=== PATIENT | male | born 1965 | race Caucasian/White ===

== ENCOUNTER 2022-02-25 06:00 | Day surgery (SDC) | payer OTHER, SELFPAY ==
--- NOTE | 2022-02-25 | GASB_PTH ---
PATIENT: DARRELL REEVES LOC: [facility] U#:[id number] AGE/SX: 56/M ROOM: RE02/25/[address]: Dr. Darrell Bello MD : 1965 BED: DIS: 02/25/2022 SPEC #: [id number] RECD: 02/25/22 11:15 STATUS: WEN MURILLO #: [id number] ESTEPHANIA: 02/25/22 00:[address]: Darrell Bello DEPT: SURGICAL PATHOLOGY RECD BY: Ted Camargo ENTERED: 02/25/22 11:16 SP TYPE: Gastric Bx OTHR DR: [facility] Tissues: A - Gastric mucous membrane B - Gastric mucous membrane C - Esophageal mucous membrane D - Transverse colon E - Sigmoid colon biopsy F - Sigmoid colon biopsy G - Rectum, NOS H - Rectum, NOS Procedures: Special Stain Group II Surgery Specimen Level IV Alcian Blue/PAS (control) HEADER OPERATION: Colonoscopy, EGD ([facility]) PRE-OP DIAGNOSIS: Abdominal pain, chronic diarrhea TISSUE SUBMITTED: A ? Gastric antrum biopsy for H. pylori and pathology, B ? Gastroesophageal junction biopsy, C ? Mid esophagus biopsy, D ? Transverse colon biopsy, E ? Sigmoid colon biopsy, F ? Sigmoid polyp at 25 cm biopsy, G ? Superficial serration of rectum biopsy, H ? Rectal polyp biopsy MICROSCOPIC DIAGNOSIS A. Gastric antrum, biopsy: Chronic gastritis. See comment. B. Gastroesophageal junction, biopsy: Mild chronic inflammation. 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 No evidence of dysplasia. Changes of reflux. See comment. C. Mid esophagus, biopsy: No pathologic change. D. Transverse colon, biopsy: Mild melanosis coli. E. Sigmoid colon, biopsy: No pathologic change. F. Sigmoid polyp at 25 cm, biopsy: Fragments of hyperplastic polyp. G. Rectum, biopsy: No pathologic change. H. Rectal polyp, biopsy: Hyperplastic polyp. AM:ramez 02/26/2022 COMMENT A. The results of immunohistochemistry for Helicobacter pylori will be reported separately ([id number]). B. Immunohistochemistry ([id number]) for P53 and Ki-67 will be performed and results will be reported separately. Alcian blue/PAS stain with matched control supports the above diagnosis. MICROSCOPIC DESCRIPTION Slides are reviewed. GROSS DESCRIPTION A - Received in fixative is one container labeled with the patient's name and designated gastric antrum biopsy. The specimen consists of multiple irregular fragments of light merino soft tissue that in aggregate measure 0.6 x 0.4 x 0.1 cm. The specimen is totally submitted in one cassette. B - Received in fixative is one container labeled with the patient's name and designated biopsy GE junction. The specimen consists of multiple irregular fragments of light merino soft tissue that in aggregate measure 1 x 0.3 x 0.1 cm. The specimen is totally submitted in one cassette. C - Received in fixative is one container labeled with the patient's name and designated biopsy mid esophagus. The specimen consists of multiple irregular fragments of light merino soft tissue that in aggregate measure 1 x 0.2 x 0.1 cm. The specimen is totally submitted in one cassette. D - Received in fixative is one container labeled with the patient's name and designated biopsy transverse colon. The specimen consists of one irregular fragment of light merino soft tissue that measures 0.3 x 0.3 x 0.1 cm. The specimen is totally submitted in one cassette. E - Received in fixative is one container labeled with the patient's name and designated biopsy sigmoid colon. The specimen consists of one irregular fragment of light merino soft tissue that measures 0.3 x 0.3 x 0.1 cm. The specimen is totally submitted in one cassette. F - Received in fixative is one container labeled with the patient's name and designated biopsy sigmoid polyp at 25 cm. The specimen consists of two irregular fragments of light merino soft tissue that in aggregate measure 0.6 x 0.3 x 0.1 cm. The specimen is totally submitted in one cassette. G - Received in fixative is one container labeled with the patient's name and designated biopsy superficial serration of rectum. The specimen consists of one irregular fragment of light merino soft tissue that measures 0.4 x 0.3 x 0.1 cm. The specimen is totally submitted in one cassette. H - Received in fixative is one container labeled with the patient's name and designated biopsy rectal polyp. The specimen consists of one irregular fragment of light merino soft tissue that measures 0.3 x 0.3 x 0.1 cm. The specimen is totally submitted in one cassette. / SJ:ramez 02/25/2022 TC:3 CPT: 02487 x8, 52399
[2022-02-25 06:29] VITALS: BP 140/77; PULSE 65; RESP 18; TEMP 36.6; O2SAT 98; BMI 33.8
[2022-02-25] MEDS: Lactated Ringers 1,000 ML 15 ML IV (07:05)
--- NOTE | 2022-02-25 07:30 | IMM_PTH ---
PATIENT: DARRELL REEVES LOC: [facility] U#:[id number] AGE/SX: 56/M ROOM: RE02/25/[address]: Dr. Darrell Bello MD : 1965 BED: DIS: 02/25/2022 SPEC #: [id number] RECD: 02/25/22 13:49 STATUS: WEN CHIDI #: [id number] ESTEPHANIA: 02/25/22 07:[address]: Darrell Bello DEPT: IMMUNOHISTOCHEMISTRY RECD BY: Jacey Addison ENTERED: 02/25/22 13:50 SP TYPE: IMMUNO OTHR DR: [facility] Tissues: A - Stomach, NOS B - Gastric mucous membrane Procedures: H Pylori (initial) P53 (initial) KI-67 (add) PHYSICIAN & INSTITUTION [place] [id number] SPECIMEN INFORMATION: Tissue Source: A ? Gastric antrum biopsy, B ? GE junction biopsy Clinical Info: Abdominal pain, chronic diarrhea Specimen Number: [id number] A & B CPT code: 40815 x2, 32904 METHODOLOGY: Deparaffinized sections of prefer/formalin-fixed tissue or PAP/DQ stained slides are incubated with monoclonal/polyclonal antibodies/oligonucleotide probes. Localization is made via biotin free immunoperoxidase method. Appropriate controls are performed and reacted as expected. Results on target cell population are indicated in the following table: RESULTS: ANTIBODY / CLONE RESULT Block A H Pylori (polyclonal) negative Block B P53 (DO-7) negative Ki-67 (30-9) positive, low These tests were developed and their performance characteristics determined by [facility]. They may not have been cleared or approved by the U.S. Food and Drug Administration. The FDA has determined that such clearance or approval is not necessary. The above immunohistochemical/dualISH markers are ordered and reviewed by the Pathologist. INTERPRETATION: A. Gastric antrum, biopsy: Negative for Helicobacter pylori organisms. B. Gastroesophageal junction, biopsy: No evidence of dysplasia. AM:ramez 03/01/2022
--- NOTE | 2022-02-25 07:43 | HP.PCM_ITS ---
History and Physical Date of Admission: 02/25/22 Date of Service: 02/10/22 MR#:[id number]:[id number]: JANNETTE REEVESRep #:[id number] Provider:Dr. Jannette Bello MDAge/Sex: 56/M [facility] Vital Signs 02/10/22 08:17 Height 5 ft 11 in Weight: 245 lb BMI 34.2 BP 147/89 H Blood Pressure Location Rt brachial Position Sitting Respiration 18 Intake Visit Reasons: Colonoscopy & EGD Chief Complaint: c-scope/egd Permit Specialist Required: No Is patient in pain?: Yes (abdominal pain) Allergies bupropion [From Wellbutrin] Allergy (Mild, Verified 02/10/22 08:16) PT UNSURE OF REACTION Medications cholecalciferol (vitamin D3) 50 mcg (2,000 unit) tablet tablet PO 02/10/22 [His tory Confirmed 02/10/22] fluoxetine 20 mg capsule 20 mg PO DAILY 02/10/22 [History Confirmed 02/10/22] gabapentin 300 mg capsule cap PO 02/10/22 [History Confirmed 02/10/22] miconazole nitrate 2 % topical tincture TOPICAL 02/10/22 [History Confirmed 02/10/22] omeprazole 20 mg capsule,delayed release 20 mg PO DAILY #30 cap 02/10/22 [Rx Confirmed 02/10/22] PFSH Medical History (Updated 02/10/22 @ 19:[address] Jannette Bello MD) Abdominal pain Chronic diarrhea Insomnia Nerve pain Surgical History (Updated 02/10/22 @ 08:20 by Radha Lyons) H/O excision of mass S/P appendectomy Family History (Updated 02/10/22 @ 08:21 by Radha Lyons) Father Cancer skin Social History (Updated 02/10/22 @ 08:21 by Radha Lyons) Smoking Status: Never smoker alcohol intake: current HPI HPI HPI: JANNETTE REEVES, is a 56 M who presents to the office today for what he describes as diarrhea dominant IBS symptoms. They are referred for surgical consultation from the [place] for both EGD and colonoscopy. He states for the last few years he experiences abdominal pain centrally and then shortly thereafter will have episodes of diarrhea throughout the day. Previously these episodes occurred with a frequency of 6 times daily, however, he reports through dietary modifications he has decreased his frequency to 3-4 times daily. By dietary modifications, he details this to mean avoidance of fatty and fried foods. With these bowel movements, he experiences occasional bright red blood per rectum (he estimates with a frequency of 1 time weekly). He states that his blood lightly coats the stool. He denies any routine fiber supplementation, but states that his diet is moderately high and fiber through foods such as granola bars, oatmeal and cereal for breakfast. He also admits to a history of hemorrhoids?as were noted as the sole finding on his first and only colonoscopy in 2013 where a 10-year follow-up was recommended. He believes he may still have hemorrhoid issues as he is experiencing some tissue protrusion, but explicitly denies any itching or pain. He denies any treatment for this issue. Beyond the above, Mr. Ortega states that he does have frequent reflux symptoms. He admits that he must be careful when trying to eat late at night as this will produce symptoms and make it difficult to get to sleep. Since recognizing this important temporal relationship, he estimates that he normally has dinner around 5:30 in the evening and then retires to bed sometime between 9 and 930. Despite this, he admits to frequent nighttime awakenings where he tastes acid. The last time this occurred was earlier this week when he had tacos for dinner. He denies ever being on medical therapy for this issue. Previous surgical history included a laparoscopic appendectomy in the early 1999. Patient denies any family history of GI diagnoses. ROS General General: No weight change, appetite, fatigue, colon cancer, breast cancer or weakness HEENT HEENT: No difficulty swallowing, eye injury, eye surgery, swollen glands or hoarseness Endo Endocrine: No thyroid disease, diabetes mellitus, thyroid cancer, Hair loss, heat intolerance or cold intolerance Skin Skin: No rash or changing moles Breast Breast: No left breast lump, right breast lump, nipple discharge, breast pain, abnormal mammogram, abnormal US or breast enlargement Musc Musculoskeletal: Yes back problems; No arthritis, rheumatoid arthritis, gout or joint pain Cardio Cardiovascular: No murmur, pacemaker, heart disease, atrial fibrillation, high blood pressure, heart attack, heart stent, palpitations, shortness of breat with exertion or chest pain Psych Psychiatric: No depression, anxiety or hearing voices Resp Respiratory: No shortness of breath, No sleep apnea, No cough, No COPD, No asthma, No emphysema and No wheezing Gastro Gastrointestinal: No abdominal pain, No nausea or vomiting, No diarrhea, No constipation, No blood in stool, No acid reflux, No hemorrhoids, No ulcers, No gallbladder problem and No black,tarry stools Amando Hematologic: No blood thinners, No blood disorders, No bleeding, No anemia and No blood clots Neuro Neurologic: No system reviewed and no additional complaints, except as documented, No as per HPI, No abnormal gait, No abnormal hearing, No abnormal movements, No abnormal speech, No behavioral changes, No burning sensations, No confusion, No convulsions, No disequilibrium, No dizziness, No localized weakness, No frequent falls, No headache(s), No lack of coordination, No loss of vision, No memory loss, Yes numbness, No other visual disturbances, No radicular pain, No restless legs, No sensory deficit, No syncope, Yes tingling, No tremor(s), No weakness and No other Exam Const General: cooperative, healthy appearing, comfortable and no acute distress Orientation: alert, awake and oriented x3 Resp Effort & Inspection: normal respiratory effort Auscultation: no rales, no rhonchi and no wheezes Cardio Rate: regular rate Rhythm: regular rhythm Heart Sounds: S1 normal and S2 normal GI Inspection: scar and visible herniation (Small incisional hernia at the umbilicus) Palpation: soft, hernia and tender in the LLQ (Mild with deep palpation) and other (Mild with palpation of incisional hernia at umbilicus) Assessment and Plan Assessment and Plan (1) Incisional hernia of anterior abdominal wall without obstruction or gangrene: Status: Acute Comment: This is a subcentimeter defect and would seem to be of low risk for bowel obstruction or incarceration. Given patient's other issues, recommend watchful waiting. Patient was given precautionary signs and offered elective repair in the future should these develop. Plan - Dr. Jannette Bello MD: Recommend further clinical observation (2) Abdominal pain: Status: Acute (3) Chronic diarrhea: Status: Chronic Comment: Is a 56-year-old male with frequent abdominal pains and diarrhea who had a normal colonoscopy aside from some internal hemorrhoids in 2013. Agree with re quest for updated colonoscopic evaluation and will plan to perform random biopsies at the time of exam. Patient informed that this will require a preprocedure bowel prep and that he will require a milk delivery driver the day of the procedure given the use of sedation. All additional questions were answered and the patient wishes to proceed as described. Plan - Dr. Jannette Bello MD: Colonoscopy with random colonic biopsy under local MAC (4) GERD (gastroesophageal reflux disease): Status: Acute Qualifiers: Esophagitis presence: esophagitis presence not specified Qualified Code(s): K21.9 - Gastro-esophageal reflux disease without esophagitis Comment: Patient with frequent gastroesophageal reflux symptoms who is trying to make lifestyle modifications, but still experiencing significant discomfort. Recommend initiation of medical therapy immediately using omeprazole 20 mg daily. Given that patient is also recommended a diagnostic colonoscopy under local MAC, would like to perform simultaneous EGD under local MAC to assess for possible hiatal hernia, ulcer, intestinal dysplasia, or signs of H. pylori. Plan - Dr. Jannette Bello MD: ? Omeprazole 20 mg daily ? EGD under local MAC with biopsies as necessary Plan Details Other Medications: New: omeprazole 20 mg PO DAILY 30 caps 2RF Coding Level of Care Code Off vis,new,level 4 Diagnoses Incisional hernia of anterior abdominal wall without obstruction or gangrene K43.2 Abdominal pain R10.9 Chronic diarrhea K52.9 GERD (gastroesophageal reflux disease) K21.9 Esophagitis presence: esophagitis presence not specified I have re-examined the patient. There are no clinical changes since date of exam. Patient confirms that his bowel prep proceeded uneventfully. He denies any questions related to today's exam. Proceed as discussed above.
[2022-02-25 08:45] VITALS: BP 125/96; BP 140/77; PULSE 59; RESP 16; TEMP 36.7; O2SAT 93
[2022-02-25 08:50] VITALS: BP 119/78; BP 140/77; PULSE 53; RESP 18; O2SAT 95
[2022-02-25 08:55] VITALS: BP 119/78; BP 140/77; PULSE 56; RESP 18; O2SAT 94
--- NOTE | 2022-02-25 08:59 | OP.COLON_ITS ---
Patient Name: Darrell Gonzalez Procedure Date: 02/25/2022 7:13 AM Date of : 1965 Age: 56 Procedure: Colonoscopy Indications: Generalized abdominal pain, Clinically significant diarrhea of unexplained origin Providers: Darrell Bello MD Referring MD: Darrell Bello MD Medicines: See the Anesthesia note for documentation of the administered medications Patient Profile: Refer to note in patient chart for documentation of history and physical. Last Colonoscopy: 8 years ago. Complications: No immediate complications. Estimated blood loss: Minimal. Procedure: Pre-Anesthesia Assessment: - The heart rate, respiratory rate, oxygen saturations, blood pressure, adequacy of pulmonary ventilation, and response to care were monitored throughout the procedure. After I obtained informed consent, the scope was passed under direct vision. Throughout the procedure, the patient's blood pressure, pulse, and oxygen saturations were monitored continuously. The gastroscope was introduced through the anus and advanced to the cecum, identified by appendiceal orifice and ileocecal valve. The Colonoscope was introduced through the and advanced to. The colonoscopy was performed without difficulty. The patient tolerated the procedure fairly well. The quality of the bowel preparation was adequate to identify polyps. Scope In: 7:47:36 AM Scope Withdrawal Time 0 hours 20 minutes 9 seconds Scope Out: 8:39:34 AM Total Procedure Duration Time 0 hours 51 minutes 58 seconds Findings: Skin tags were found on perianal exam. A polyp was found in the rectum sigmoid colon. The polyp was semi-sessile. Biopsies were taken with a cold forceps for histology. Estimated blood loss was minimal. A few five mm ulcers were found in the rectum. No stigmata of recent bleeding were seen. Biopsies were taken with a cold forceps for histology. Estimated blood loss was minimal. No additional abnormalities were found on retroflexion. Impression: - Perianal skin tags found on perianal exam. - One polyp in the rectum in the sigmoid colon. Biopsied. - A few ulcers in the rectum. Biopsied. Recommendation: - Discharge patient to home (via wheelchair). - Resume previous diet today. - Continue present medications. - Await pathology results. - Repeat colonoscopy date to be determined after pending pathology results are reviewed for surveillance based on pathology results. - Telephone my office for pathology results in 1 week. Procedure Code(s): --- Professional --- 73120, Colonoscopy, flexible; with biopsy, single or multiple Diagnosis Code(s): --- Professional --- K62.1, Rectal polyp D12.5, Benign neoplasm of sigmoid colon K62.6, Ulcer of anus and rectum K64.4, Residual hemorrhoidal skin tags R10.84, Generalized abdominal pain R19.7, Diarrhea, unspecified CPT copyright 2017 [employer]. All rights reserved. The codes documented in this report are preliminary and upon signal tower operator review may be revised to meet current compliance requirements. Darrell Bello MD 02/25/2022 8:58:40 AM This report has been signed electronically. Number of Addenda: 0 Note Initiated On: 02/25/2022 7:13 AM
--- NOTE | 2022-02-25 08:59 | OP.CCLET_ITS ---
02/25/2022 Out Of [facility] Doctor Re : Colonoscopy procedure for Darrell Keaneborn Dear [facility] Doctor This procedure was performed on February. My impressions and recommendations are as follows: Impressions : - Perianal skin tags found on perianal exam. - One polyp in the rectum in the sigmoid colon. Biopsied. - A few ulcers in the rectum. Biopsied. Recommendations : - Discharge patient to home (via wheelchair). - Resume previous diet today. - Continue present medications. - Await pathology results. - Repeat colonoscopy date to be determined after pending pathology results are reviewed for surveillance based on pathology results. - Telephone my office for pathology results in 1 week. My findings are described in the full procedure note, which is enclosed. If I can be of further assistance, please feel free to contact me at Doctor phone number(s): , Work: . Sincerely, Darrell Bello MD 02/25/2022 8:58:40 AM This report has been signed electronically.
[2022-02-25 09:00] VITALS: BP 124/84; BP 140/77; PULSE 57; RESP 18; TEMP 36.8; O2SAT 95
[2022-02-25 09:16] VITALS: BP 140/77
--- NOTE | 2022-02-25 09:42 | SUR.PHASEII ---
ENDOSCOPY DISCHARGE INSTRUCTIONS WERE STILL NOT PRINTED YET D/T COMPUTER DIFFICULTIES. PATIENT DID NOT WANT TO WAIT, SO I VERBALLY WENT OVER INSTRUCTIONS AND TOLD THE PATIENT THAT I WOULD MAIL THEM TO THEM TODAY. THEY VERBALIZED UNDERSTANDING OF INSTRUCTIONS. OK TO DISCHARGE. THIS NURSE WALKED PATIENT OUT.
--- NOTE | 2022-02-25 10:19 | OP.EGD_ITS ---
Patient Name: Darrell Gonzalez Procedure Date: 02/25/2022 8:43 AM Date of : 1965 Age: 56 Procedure: Upper GI endoscopy Indications: Gastro-esophageal reflux disease Providers: Darrell Bello MD Referring MD: Darrell Bello MD Medicines: See the Anesthesia note for documentation of the administered medications Patient Profile: Refer to note in patient chart for documentation of history and physical. Complications: No immediate complications. Estimated blood loss: Minimal. Procedure: Pre-Anesthesia Assessment: - The heart rate, respiratory rate, oxygen saturations, blood pressure, adequacy of pulmonary ventilation, and response to care were monitored throughout the procedure. After obtaining informed consent, the endoscope was passed under direct vision. Throughout the procedure, the patient's blood pressure, pulse, and oxygen saturations were monitored continuously.The upper GI endoscopy was somewhat difficult due to the patient's oxygen desaturation. Successful completion of the procedure was aided by performing chin lift. The Endoscope was introduced through the mouth, and advanced to the second part of duodenum. Findings: The first portion of the duodenum and second portion of the duodenum were normal. No biopsies or other specimens were collected for this exam. Localized mild inflammation characterized by erythema was found in the gastric antrum. Biopsies were taken with a cold forceps for histology. Biopsies were taken with a cold forceps for Helicobacter pylori cultures. Estimated blood loss was minimal. A small hiatal hernia was present. No biopsies or other specimens were collected for this exam. The Z-line was irregular and was found 40 cm from the incisors. Biopsies were taken with a cold forceps for histology. Estimated blood loss was minimal. A few 3 mm polyps with no bleeding were found. Biopsies were taken with a cold forceps for histology. Impression: - Normal first portion of the duodenum and second portion of the duodenum. No specimens collected. - Gastritis. Biopsied. - Small hiatal hernia. No specimens collected. - Z-line irregular, 40 cm from the incisors. Biopsied. - Esophageal polyp(s) were found. Biopsied. Recommendation: - Discharge patient to home (via wheelchair). - Resume regular diet today. - Continue present medications. - Await pathology results. - Telephone my office for pathology results in 1 week. Procedure Code(s): --- Professional --- 42032, Esophagogastroduodenoscopy, flexible, transoral; with biopsy, single or multiple Diagnosis Code(s): --- Professional --- K29.70, Gastritis, unspecified, without bleeding K44.9, Diaphragmatic hernia without obstruction or gangrene K22.8, Other specified diseases of esophagus K21.9, Gastro-esophageal reflux disease without esophagitis CPT copyright 2017 [employer]. All rights reserved. The codes documented in this report are preliminary and upon medical billing coder review may be revised to meet current compliance requirements. Darrell Bello MD 02/25/2022 10:19:06 AM This report has been signed electronically. Number of Addenda: 1 Note Initiated On: 02/25/2022 8:43 AM Addendum Number: 1 Addendum Date: 02/26/2022 8:50:18 AM Darrell Bello MD 02/26/2022 8:50:30 AM This report has been signed electronically.
--- NOTE | 2022-02-25 10:19 | OP.CCLET_ITS ---
03/01/2022 Out Of [facility] Doctor Re : Upper GI endoscopy procedure for Darrell Lisa Dear [facility] Doctor This procedure was performed on February. My impressions and recommendations are as follows: Impressions : - Normal first portion of the duodenum and second portion of the duodenum. No specimens collected. - Gastritis. Biopsied. - Small hiatal hernia. No specimens collected. - Z-line irregular, 40 cm from the incisors. Biopsied. - Esophageal polyp(s) were found. Biopsied. Recommendations : - Discharge patient to home (via wheelchair). - Resume regular diet today. - Continue present medications. - Await pathology results. - Telephone my office for pathology results in 1 week. My findings are described in the full procedure note, which is enclosed. If I can be of further assistance, please feel free to contact me at Doctor phone number(s): , Work: . Sincerely, Darrell Bello MD 02/25/2022 10:19:06 AM This report has been signed electronically.
--- NOTE | 2022-02-25 10:49 | SUR.PHASEII ---
ENDOSCOPY DISCHARGE INSTRUCTIONS WERE SENT TO THE PATIENT TODAY VIA MAIL.
== END 2022-02-25 09:43 | disposition home or self-care (01) ==
LOC: EN 06:07 → AC 06:07
PROVIDERS: Referring Provider Surgery; Visit Provider Surgery
PROC: 0DJD8ZZ Inspection of Lower Intestinal Tract, Via Natural or Artificial Opening Endoscopic (ICD-10-PCS; CPT 45378; principal; 2022-02-25 07:25)
DX: K62.6 Ulcer of anus and rectum (principal); K44.9 Diaphragmatic hernia without obstruction or gangrene; K62.1 Rectal polyp; K22.81 Esophageal polyp; K64.4 Residual hemorrhoidal skin tags; K63.89 Other specified diseases of intestine; K63.5 Polyp of colon; K29.50 Unspecified chronic gastritis without bleeding; K22.70 Barrett's esophagus without dysplasia; K21.9 Gastro-esophageal reflux disease without esophagitis; F32.A Depression, unspecified; Z79.899 Other long term (current) drug therapy
CPT/HCPCS: 45380; 43239; 87426; 88305; 88313; 88341; 88342; C9803; J7120; J2405